=== PATIENT | male | born 1980 | race Caucasian/White ===

== ENCOUNTER 2016-12-12 04:57 | Emergency (ER) | payer SELFPAY ==
[2016-12-12 05:07] VITALS: BMI 37.3
--- NOTE | 2016-12-12 05:19 | DR.GENAD ---
HPI - PCP Primary Care Physician: nfd - HPI Comment HPI Comment: LEFT KNEE SWOLLEN AND PAINFULL WITH DECREASE ROM. STARTED YESTERDAY. NEGATIVE TRAUMA. - Complaint/Symptoms Chief Complaint Doctors Comments: LEFT KNEE PAIN. Chief Complaint:: pt states" my knee yesterday morning i couldn't bend it. Karen iced it and put heat on it but it hasn't helped. i took motrin and lorcet and it didn't do anything for the pain. i didn't hurt it or anything i don't know why it's hurting" - Nurses notes reviewed Nurses Notes Review: Yes - Source History Provided: Patient - Mode of Arrival Mode of Arrival: Ambulatory - Timing Onset of Chief Complaint: 12/11/16 Came on: Suddenly - Duration Duration: Constant Duration: Days - Severity Severity: Moderate PMH - PMH Past Medical History: Yes Past Medical History: Gout Past Surgical History: No - Family History History of Family Medical Conditions: Yes Family Medical History: Diabetes Mellitus - Social History Type of Tobacco Use: Cigarettes Does any household member use tobacco: Yes Alcohol Use: None Do you use any recreational Drugs:: No Lives With: Family Lives Where: Home - infectious screening In the last 2 months have you had wt loss of >10#?: NO Have you had fever, night sweats or hemotysis?: No Have you traveled outside the country in the last 6 months?: No Isolation: Standard ROS - Review of Systems Constitutional: No Symptoms Reported Eyes: No Symptoms Reported ENTM: No Symptoms Reported Respiratoy: No Symptoms Reported Cardiovascular: No Symptoms Reported Gastrointestinal/Abdominal: No Symptoms Reported Genitourinary: No Symptoms Reported Neurological: No Symptoms Reported Musculoskeletal: Muscle Pain, Left, Ankle Integumentary: No Symptoms Reported Hematologic/Lymphatic: No Symptoms Reported Endocrine: No Symptoms Reported All Other Systems: Reviewed and Negative PE - Vital Signs Vitals: Temperature 979 F Pulse Rate 80 Respiratory Rate 18 Blood Pressure 116/80 O2 Sat by Pulse Oximetry 97 - General Limitations: No Limitations General Appearance: Alert - Head Head Exam: Normal Inspection - Eyes Eye exam: Normal Appearance - ENT ENT Exam: Normal External Ear Exam External Ear Exam: Normal External Inspection Nose Exam: Normal Nose Exam Mouth Exam: Normal Inspection Throat Exam: Normal Inspection - Neck Neck Exam: Trachea Midline - Chest Chest Inspection: Symmetric Chest Wall Rise - Respiratory Respiratory Exam: Normal Lung Sounds Bilat Respiratory Exam: Bilateral Clear to Auscultation - Cardiovascular Cardiovascular Exam: Regular Rate, Normal Rhythm, Normal Heart Sounds - Abdominal Exam Abdominal Exam: Normal Inspection - Extremities Extremities Exam: Tenderness (LEFT KNEE SWOLLEN, TENDER. ROM DECREASE.), Joint Swelling (LT KNEE.) - Back Back Exam: Normal Inspection - Neurologic Neurological Exam: Alert, Oriented X3 - Psychiatric Psychiatric Exam: Normal Affect, Normal Mood - Skin Skin Exam: Normal Color MDM - Differential Diagnosis Differential Diagnosis: LEFT KNEE SPRAIN, STRAIN, FRACTURE. Course - Treatment Treatment: SEE ORDERS. IM TORADOL, PAIN IMPROVING. - Education/Counseling Education/Counseling: Patient, Education Educated On: Treatment, Diagnosis, Needs for Follow Up ROR - XRAY XRAY Interpreted by: Radiologist XRAY Findings: REPORT DISCUSS WITH PATIENT. - Diagnosis Discharge Problem: Left knee sprain Qualifiers: Encounter type: initial encounter Involved ligament of knee: unspecified ligament Qualified Code(s): S83.92XA - Sprain of unspecified site of left knee, initial encounter - Discharge Plan Condition: Stable Prescriptions: Ibuprofen [MOTRIN TAB 800 MG *] 800 mg PO Q8H PRN #20 tab PRN Reason: Pain/Inflammation Methylprednisolone Dosepak 4Mg [MEDROL DOSEPAK (4 mg tab x 21)] 1 elsi PO ONCE # 1 elsi - Follow ups/Referrals Follow ups/Referrals: [facility],None [Primary Care Provider] - 3 days SHAHEED VILLALOBOS [STAFF PHYSICIAN] - 3 days - Instructions Instructions: Knee Pain, [id number] Additional Instructions: RETURN TO ED IF WORSE.
[2016-12-12] MEDS ORDERED: TORADOL 60 MG VIAL IM ONE (05:20)
[2016-12-12] MEDS ORDERED: TORADOL 60 MG VIAL ONE (05:38)
--- NOTE | 2016-12-12 06:03 | RAD ---
Left knee-three views Indication: Left knee pain with no trauma. Findings: The patellofemoral and femorotibial joints are intact without cortical lucency or malalignm ent. There is no effusion. Minimal medial joint space narrowing suggested. Impression: No acute left knee abnormality. Reported By:
[2016-12-12 06:48] VITALS: BP 114/78
== END 2016-12-12 06:48 | disposition home or self-care (01) ==
LOC: ER 04:57
DX: S83.92XA Sprain of unspecified site of left knee, initial encounter (principal); Y33.XXXA Other specified events, undetermined intent, initial encounter; Y92.9 Unspecified place or not applicable
CPT/HCPCS: 29530; 73564; 96372; 99282; 99283; J1885